=== PATIENT | male | born 1975 | race Hispanic/Latino ===

== ENCOUNTER → 2025-03-06 | Outpatient (CLI) | payer OTHER ==
--- NOTE | 2025-03-06 09:48 | HMCIMG ---
US ABDOMINAL COMPLETE HISTORY: Abnormal liver function tests COMPARISON: None TECHNIQUE: Multiple transverse and longitudinal ultrasound images of the abdomen were obtained. FINDINGS: There are is not well seen due to overlying bowel gas. Flow is seen in the inferior vena cava. The visualized portion of the pancreas is within normal limits. Liver is echogenic consistent with liver parenchymal disease. Liver measures 17.6 cm. No gallstone is seen. Common duct measures 4 mm. No evidence of gallbladder wall thickening is seen. Both kidneys are seen. Right kidney measures 10 x 4.7 x 5.4 cm. Left kidney measures 10.9 x 4.6 x 5.2 cm. No hydronephrosis is seen of the both kidneys. The spleen is grossly unremarkable. IMPRESSION: 1. No gallstone or ductal dilatation is seen. 2. No hydronephrosis is seen.
== END | disposition home or self-care (01) ==
LOC: EEVIPCON 07:25 → RAH 07:25
PROVIDERS: ATTEND Physical Medicine & Rehabilitation
DX: R94.5 Abnormal results of liver function studies (principal)
CPT/HCPCS: 76700